=== PATIENT | male | born 1990 | race Caucasian/White ===

== ENCOUNTER 2017-08-04 12:52 | Emergency (ER) | payer OTHER ==
[~2017-08-04] VITALS: Ht 167.6 cm; Wt 65.8 kg
[~2017-08-04 12:52] MED LIST: Augmentin 500-1 EACH PO; Flonase 0.05% N16 GM; PSEU120ER PO
[2017-08-04] MEDS ORDERED: Amoxicillin875 MG PO (13:18)
[2017-08-04] MEDS ORDERED: Ultram50 MG PO (13:18)
== END 2017-08-04 13:25 | disposition home or self-care (01) ==
LOC: ER 12:52
DX: K11.20 Sialoadenitis, unspecified (principal); Z79.899 Other long term (current) drug therapy; Z87.442 Personal history of urinary calculi; F17.200 Nicotine dependence, unspecified, uncomplicated
CPT/HCPCS: 99283

== ENCOUNTER 2017-08-07 14:20 | Emergency (ER) | payer OTHER ==
[~2017-08-07] VITALS: Ht 167.6 cm; Wt 68.0 kg
[~2017-08-07 14:20] MED LIST changes: +Amoxicillin875 MG PO; +Ultram50 MG PO
[2017-08-07] MEDS ORDERED: Augmentin 875-1 EACH PO (15:35)
[2017-08-07] MEDS ORDERED: Percocet 5-3251 EACH PO (15:35)
[2017-08-08] MEDS ORDERED: Roxicodone5 MG PO (15:36)
[2017-08-08] MEDS ORDERED: Prednisone20 MG PO (15:36)
== END 2017-08-07 16:35 | disposition home or self-care (01) ==
LOC: ER 14:20
DX: K11.20 Sialoadenitis, unspecified (principal); F17.200 Nicotine dependence, unspecified, uncomplicated; Z87.442 Personal history of urinary calculi
CPT/HCPCS: 36415; 96361; 96374; 96375; 99284; J1170; J1885; J2405; J7030

== ENCOUNTER 2017-08-08 10:49 | Emergency (ER) | payer OTHER ==
[~2017-08-08] VITALS: Ht 167.6 cm; Wt 68.0 kg
[~2017-08-08 10:49] MED LIST changes: +Augmentin 875-1 EACH PO; +Percocet 5-3251 EACH PO
[2017-08-08 13:29] LABS: BASOPHILS ABSOLUTE AUTO 0.05 K/mm3 (0.00-0.23); BASOPHILS PERCENT AUTO 0 % (0-2); EOSINOPHILS ABSOLUTE AUTO 0.16 K/mm3 (0.00-0.68); EOSINOPHILS PERCENT AUTO 1 % (0-6); IMMATURE GRAN ABSOLUTE AUTO 0.04 K/mm3 (0.00-0.10); IMMATURE GRAN PERCENT AUTO 0 % (0-1); LYMPHOCYTES ABSOLUTE AUTO 1.76 K/mm3 (0.84-5.20); LYMPHOCYTES PERCENT AUTO 12 % (21-46); MONOCYTES ABSOLUTE AUTO 1.37 K/mm3 (0.16-1.47); MONOCYTES PERCENT AUTO 9 % (4-13); Mean Corpuscular HGB 32.5 pg (26.0-34.0); Mean Corpuscular HGB Conc 36.2 g/dL (31.5-36.5); Mean Corpuscular Volume 90 fL (80-100); Mean Platelet Volume 10.7 fL (9.1-12.4); NEUTROPHILS ABSOLUTE AUTO 11.84 K/mm3 (1.96-9.15); NEUTROPHILS PERCENT AUTO 78 % (41-73); Platelet Count 259 K/mm3 (150-400); RDW Coefficient Variation 11.5 % (11.7-14.2); RDW Standard Deviation 37.7 fL (35.1-46.3); Red Blood Cell Count 5.23 M/mm3 (4.30-5.90); White Blood Cell Count 15.22 K/mm3 (4.00-11.30)
[2017-08-08 13:36] LABS: Anion Gap 9 mmol/L (6-16); Blood Urea Nitrogen 10 mg/dL (8-24); Bun/Creatinine Ratio 11.6 (12.0-20.0); CO2, Blood 28 mmol/L (21-32); Chloride, Blood 100 mmol/L (98-108); Creatinine, Blood 0.86 mg/dL (0.60-1.20); Glomerular Filtration Rate >60 (60-); Glucose, Blood 83 mg/dL (70-99); Potassium, Blood 3.5 mmol/L (3.5-5.5); Sodium, Blood 137 mmol/L (136-145)
[2017-08-08] MEDS ORDERED: Roxicodone5 MG PO (15:36)
[2017-08-08] MEDS ORDERED: Prednisone20 MG PO (15:36)
== END 2017-08-08 16:13 | disposition home or self-care (01) ==
LOC: ER 10:49
PROVIDERS: Emergency Medicine
DX: K11.5 Sialolithiasis (principal); L03.211 Cellulitis of face; L03.221 Cellulitis of neck; F17.210 Nicotine dependence, cigarettes, uncomplicated; Z79.2 Long term (current) use of antibiotics
CPT/HCPCS: 36415; 70487; 80048; 85025; 96361; 96365; 96375; 99281; 99284; J0295; J0696; J1100; J1170; J1885; J7030; Q9967

== ENCOUNTER 2018-02-16 03:16 | Emergency (ER) | payer OTHER ==
[~2018-02-16 03:16] MED LIST changes: +Prednisone20 MG PO; +Roxicodone5 MG PO
== END 2018-02-16 03:33 | disposition left against medical advice (07) ==
LOC: ER 03:16
DX: Z53.21 Procedure and treatment not carried out due to patient leaving prior to being seen by health care provider (principal)

== ENCOUNTER 2018-05-21 20:52 | Emergency (ER) | payer OTHER ==
[~2018-05-21] VITALS: Ht 167.6 cm; Wt 68.0 kg
[2018-05-21 21:25] LABS: BASOPHILS ABSOLUTE AUTO 0.02 K/mm3 (0.00-0.23); BASOPHILS PERCENT AUTO 0 % (0-2); EOSINOPHILS ABSOLUTE AUTO 0.06 K/mm3 (0.00-0.68); EOSINOPHILS PERCENT AUTO 1 % (0-6); Hemoglobin 16.4 g/dL (13.5-17.5); IMMATURE GRAN ABSOLUTE AUTO 0.04 K/mm3 (0.00-0.10); IMMATURE GRAN PERCENT AUTO 1 % (0-1); LYMPHOCYTES ABSOLUTE AUTO 1.58 K/mm3 (0.84-5.20); LYMPHOCYTES PERCENT AUTO 23 % (21-46); MONOCYTES ABSOLUTE AUTO 0.27 K/mm3 (0.16-1.47); MONOCYTES PERCENT AUTO 4 % (4-13); Mean Corpuscular HGB 31.4 pg (26.0-34.0); Mean Corpuscular HGB Conc 34.2 g/dL (31.5-36.5); Mean Corpuscular Volume 92 fL (80-100); Mean Platelet Volume 10.3 fL (9.1-12.4); NEUTROPHILS ABSOLUTE AUTO 5.05 K/mm3 (1.96-9.15); NEUTROPHILS PERCENT AUTO 72 % (41-73); Platelet Count 281 K/mm3 (150-400); RDW Coefficient Variation 11.1 % (11.7-14.2); Red Blood Cell Count 5.23 M/mm3 (4.30-5.90); White Blood Cell Count 7.02 K/mm3 (4.00-11.30)
[2018-05-21 21:39] LABS: Alanine Aminotransfer (ALT/SGP 128 U/L (12-78); Albumin, Blood 4.6 g/dL (3.4-5.0); Albumin/Globulin Ratio 1.2 (0.8-1.8); Alk Phos 57 U/L (50-136); Anion Gap 9 mmol/L (6-16); Aspartate Aminotrans (AST/SGOT 51 U/L (12-37); Bilirubin, Total 0.3 mg/dL (0.1-1.0); Blood Urea Nitrogen 12 mg/dL (8-24); Bun/Creatinine Ratio 16.3 (12.0-20.0); CO2, Blood 26 mmol/L (21-32); Calcium, Blood 8.9 mg/dL (8.5-10.1); Chloride, Blood 106 mmol/L (98-108); Creatinine, Blood 0.74 mg/dL (0.60-1.20); Globulin, Blood 3.9 g/dL (2.2-4.0); Glomerular Filtration Rate >60 (60-); Glucose, Blood 95 mg/dL (70-99); Potassium, Blood 3.9 mmol/L (3.5-5.5); Sodium, Blood 141 mmol/L (136-145); Total Protein, Blood 8.5 g/dL (6.4-8.2)
[2018-05-21] MEDS ORDERED: Zofran Odt4 MG SL (23:07)
== END 2018-05-21 23:10 | disposition home or self-care (01) ==
LOC: ER 20:52
PROVIDERS: Emergency Medicine
DX: R11.2 Nausea with vomiting, unspecified (principal); Z79.52 Long term (current) use of systemic steroids; Z79.899 Other long term (current) drug therapy; F17.210 Nicotine dependence, cigarettes, uncomplicated
CPT/HCPCS: 36415; 80053; 83690; 85025; 96361; 96374; 96376; 99284-25; J0780; J2405; J7120

== ENCOUNTER → 2018-08-01 | Outpatient (CLI) | payer OTHER ==
[~2018-08-01] MED LIST changes: +Zofran Odt4 MG SL
[2018-08-07 06:18] LABS: COTININE None Detected (.); NICOTINE None Detected (.)
== END | disposition home or self-care (01) ==
LOC: LAB SHORT 15:22 → LAB 15:22
PROVIDERS: Otolaryngology
DX: F17.201 Nicotine dependence, unspecified, in remission (principal)
CPT/HCPCS: G0480

== ENCOUNTER 2018-08-26 07:10 | Day surgery (SDC) | payer OTHER ==
[~2018-08-26] VITALS: Ht 167.6 cm; Wt 67.1 kg
== END 2018-08-26 12:19 | disposition home or self-care (01) ==
LOC: ORSCSDS 07:10
PROVIDERS: Otolaryngology
PROC: 0CBH0ZX Excision of Left Submaxillary Gland, Open Approach, Diagnostic (ICD-10-PCS; principal; 2018-08-26 08:15)
DX: K11.20 Sialoadenitis, unspecified (principal); I10 Essential (primary) hypertension; E11.9 Type 2 diabetes mellitus without complications; Z87.891 Personal history of nicotine dependence; Z79.899 Other long term (current) drug therapy
CPT/HCPCS: 88307; J0171; J1100; J2250; J2405; J2710; J3010; J7120

== ENCOUNTER → 2020-12-30 | Outpatient (CLI) | payer OTHER ==
[2020-12-30 15:04] LABS: BASOPHILS ABSOLUTE AUTO 0.03 K/mm3 (0.00-0.23); BASOPHILS PERCENT AUTO 0 % (0-2); EOSINOPHILS ABSOLUTE AUTO 0.01 K/mm3 (0.00-0.68); EOSINOPHILS PERCENT AUTO 0 % (0-6); Hematocrit 49.5 % (37.0-53.0); Hemoglobin 17.9 g/dL (13.5-17.5); IMMATURE GRAN ABSOLUTE AUTO 0.02 K/mm3 (0.00-0.10); IMMATURE GRAN PERCENT AUTO 0 % (0-1); LYMPHOCYTES PERCENT AUTO 19 % (21-46); MONOCYTES ABSOLUTE AUTO 0.64 K/mm3 (0.16-1.47); MONOCYTES PERCENT AUTO 8 % (4-13); Mean Corpuscular HGB 32.5 pg (26.0-34.0); Mean Corpuscular HGB Conc 36.2 g/dL (31.5-36.5); Mean Corpuscular Volume 90 fL (80-100); Mean Platelet Volume 10.6 fL (9.1-12.4); NEUTROPHILS ABSOLUTE AUTO 5.93 K/mm3 (1.96-9.15); NEUTROPHILS PERCENT AUTO 73 % (41-73); Platelet Count 275 K/mm3 (150-400); RDW Coefficient Variation 11.5 % (11.7-14.2); RDW Standard Deviation 37.7 fL (35.1-46.3); White Blood Cell Count 8.13 K/mm3 (4.00-11.30)
[2020-12-30 15:07] LABS: Anion Gap 11 mmol/L (6-16); Blood Urea Nitrogen 12 mg/dL (8-24); Bun/Creatinine Ratio 12.8 (12.0-20.0); CO2, Blood 26 mmol/L (21-32); Calcium, Blood 9.2 mg/dL (8.5-10.1); Chloride, Blood 101 mmol/L (98-108); Creatinine, Blood 0.94 mg/dL (0.60-1.20); Glomerular Filtration Rate >60 (60-); Glucose, Blood 94 mg/dL (70-99); Potassium, Blood 3.9 mmol/L (3.5-5.5); Sodium, Blood 138 mmol/L (136-145)
== END | disposition home or self-care (01) ==
LOC: LAB SHORT 14:58 → LAB 14:58
PROVIDERS: Physician Assistant Surgical
DX: R10.31 Right lower quadrant pain (principal)
CPT/HCPCS: 80048; 85025

== ENCOUNTER → 2021-02-02 | Outpatient (CLI) | payer OTHER | END | disposition home or self-care (01) | LOC: LAB EV 09:36 → LAB SHORT 09:36 | DX: R10.31 Right lower quadrant pain (principal) | CPT/HCPCS: 87338 ==

== ENCOUNTER 2022-05-04 12:35 | Emergency (ER) | payer OTHER ==
[~2022-05-04] VITALS: Ht 167.6 cm; Wt 68.0 kg
[~2022-05-04 12:35] MED LIST changes: +IBUP400 PO
[2022-05-04] MEDS ORDERED: Voltaren100 GM TOP (13:57)
== END 2022-05-04 14:08 | disposition home or self-care (01) ==
LOC: ER 12:35
DX: M76.31 Iliotibial band syndrome, right leg (principal); M25.561 Pain in right knee; F17.210 Nicotine dependence, cigarettes, uncomplicated
CPT/HCPCS: 73562-RT; 99283-25; A9270

== ENCOUNTER 2025-01-02 06:11 | Observation (INO) | payer BC ==
[~2025-01-02] VITALS: Ht 167.6 cm; Wt 71.7 kg
[2025-01-02] VITALS (12 sets, daily range): BP systolic 110–145; BP diastolic 64–101
[~2025-01-02 06:11] MED LIST changes: +ACET500 PO; +FLOMAX0.4 MG PO; +IBUP600 PO; +ONDA4ODT MM; +PERCOCET 10-321 EA13 PO; +TAMS.4ER PO; +Voltaren100 GM TOP
[2025-01-02] MEDS ORDERED: NS 1,000 ML IV SCH ×3 (06:45→21:45)
[2025-01-02] MEDS ORDERED: Morphine Sulfate 4 MG/1 ML Injection IV ONE (06:45)
[2025-01-02] MEDS ORDERED: Ondansetron HCl 2 MG / ML 2ML Vial IV ONE (06:45)
[2025-01-02] MEDS ORDERED: Ketorolac Tromethamine 15mg Vial IV ONE (06:45)
[2025-01-02 06:52] LABS: Source, Urine Clean Catch
[2025-01-02 07:04] LABS: Bilirubin, Urine Neg (Neg); Blood, Urine 5+ (Neg); Glucose Qualitative, Urine Neg (Neg); Ketones, Urine Neg (Neg); Leukocyte Esterase, Urine Neg (Neg); Nitrite, Urine Neg (Neg); Protein, Urine 2+ (Neg); Specific Gravity, Urine 1.025 (1.003-1.022); Urobilinogen, Urine NORM (Normal)
[2025-01-02 07:05] LABS: Appearance, Urine Clear (Clear); Color, Urine No Color (P-Yellow)
[2025-01-02 07:09] LABS: White Blood Cells, Urine 0-2 /hpf (0-5)
[2025-01-02 07:10] LABS: Bacteria Rare /hpf; Red Blood Cells, Urine 50-100 /hpf (0-2); Squamous Epithelial Cells Not Seen /hpf (Few)
[2025-01-02 07:32] LABS: BASOPHILS ABSOLUTE AUTO 0.02 K/mm3 (0.00-0.23); BASOPHILS PERCENT AUTO 0 % (0-2); EOSINOPHILS ABSOLUTE AUTO 0.04 K/mm3 (0.00-0.68); EOSINOPHILS PERCENT AUTO 0 % (0-6); Hematocrit 38.7 % (37.0-53.0); Hemoglobin 13.5 g/dL (13.5-17.5); IMMATURE GRAN ABSOLUTE AUTO 0.03 K/mm3 (0.00-0.10); IMMATURE GRAN PERCENT AUTO 0 % (0-1); LYMPHOCYTES ABSOLUTE AUTO 0.93 K/mm3 (0.84-5.20); LYMPHOCYTES PERCENT AUTO 8 % (21-46); MONOCYTES ABSOLUTE AUTO 0.68 K/mm3 (0.16-1.47); MONOCYTES PERCENT AUTO 6 % (4-13); Mean Corpuscular HGB 31.7 pg (26.0-34.0); Mean Corpuscular HGB Conc 34.9 g/dL (31.5-36.5); Mean Corpuscular Volume 91 fL (80-100); Mean Platelet Volume 10.7 fL (9.1-12.4); NEUTROPHILS ABSOLUTE AUTO 9.39 K/mm3 (1.96-9.15); NEUTROPHILS PERCENT AUTO 85 % (41-73); Platelet Count 176 K/mm3 (150-400); RDW Coefficient Variation 11.9 % (11.7-14.2); RDW Standard Deviation 39.8 fL (35.1-46.3); Red Blood Cell Count 4.26 M/mm3 (4.30-5.90); White Blood Cell Count 11.09 K/mm3 (4.00-11.30)
[2025-01-02 07:48] LABS: Bun/Creatinine Ratio 12.7 (12.0-20.0); Calcium, Blood 8.7 mg/dL (8.5-10.1); Creatinine, Blood 1.42 mg/dL (0.60-1.20); Potassium, Blood 3.8 mmol/L (3.5-5.5)
[2025-01-02] MEDS ORDERED: HYDROmorphone HCl/Pf 1MG SYR IV PRN ×3 (09:10→21:46)
[2025-01-02] MEDS ORDERED: Ondansetron HCl 2 MG / ML 2ML Vial IV PRN (10:30)
[2025-01-02] MEDS ORDERED: Ketorolac Tromethamine 15mg Vial IV PRN (13:00)
[2025-01-02] MEDS ORDERED: CefTRIAXone Sodium 1,000 MG in NS 100 ML IV SCH (14:00)
--- NOTE | 2025-01-02 15:02 | NUR ---
HOSPITALIST INQUIRY NOTE: CALLED DR. ZAMORA AT 1450 INQUIRING PLAN OF CARE FOR PATIENT. PER. DR. ZAMORA HE SPOKE TO DR. MARTEL AND THE PLAN TO HAVE NEPHROSTOMY PLACEMENT SOMETIMES TODAY. THIS RN UPDATED MICAELA, CASHIER GREETER c PLAN OF CARE. MICAELA CALLED [facility]. PER [facility] THEY ARE AWARE OF PATIENT CASE, BUT COULD NOT PROVIDE ANY TIME FRAME.
--- NOTE | 2025-01-02 16:45 | NUR ---
CONSULTATION NOTE: DR. MARTEL (IR) CAME AT [phone] SPOKE TO PATIENT AND SPOUSE AT BEDSIDE c PLAN OF CARE.
[2025-01-02] MEDS ORDERED: NS 250 ML IV ONE (18:11)
[2025-01-02] MEDS ORDERED: Midazolam HCl 1MG / ML 2ML Vial ONE ×2 (18:16→18:37)
[2025-01-02] MEDS ORDERED: NS 1,000 ML IV ONE (18:16)
[2025-01-02] MEDS ORDERED: FentaNYL Citrate 50 MCG/ML 2 ML Injection ONE ×2 (18:16→18:41)
--- NOTE | 2025-01-02 18:29 | NUR ---
SHIFT SUMMARY: PATIENT ADMITTED FOR NEPHROLITHIASIS/FREDO, A/OX4, PLEASANT AND COOPERATIVE c CARE. PATIENT MEDICATED FOR L SIDE PAIN PER EMAR c GOOD EFFECT. PATIENT NPO FOR POSSIBLE NEPHROSTOMY TUBE PLACEMENT. PATIENT RECEIVED IV ABX AND NS PER ORDER. VITAL SIGNS REVIEWED. PATIENT LEFT THE ROOM AT 1810 TO DAY SURGERY.
--- NOTE | 2025-01-02 19:30 | NUR ---
PATIENT BROUGHT TO FLOOR BY IR STAFF, BEDSIDE REPORT RECEIVED. PT ALERT X4 C/O PAIN 10/10 LEFT FLANK. PRN GIVEN. LEFT FLANK NEPHROSTOMY TUBE DRAINING. SLIGHT DRAINAGE ON DRESSING. URINE BLOOD RED WITH CLOTS. APPLIED 2 L O2 VIA N/C FOR PAIN AND SEDATION. HYPO ACTIVE BOWEL SOUNDS . POST OP VITALS STARTED WILL CONTINUE TO MONITOR. 2029- GAVE PRN FOR PAIN 0 GAVE PRN FOR PAIN 2144- TT DR NEW ORDERS RECEIVED. FLUIDS STARTED . 2250-PRN GIVEN FOR PAIN 0330-PRN GIVEN FOR PAIN. TUBE DRAINING BRIGHT BLOOD RED .
[2025-01-02] MEDS ORDERED: Tamsulosin HCl 0.4 MG Cap PO SCH (21:00)
[2025-01-02] MEDS ORDERED: OxyCODONE HCL 5 MG TAB PO PRN (21:50)
[2025-01-03 03:21] VITALS: BP 99/51
[2025-01-03 03:23] LABS: Hematocrit 34.1 % (37.0-53.0); Hemoglobin 11.9 g/dL (13.5-17.5)
[2025-01-03 03:41] LABS: Bun/Creatinine Ratio 11.2 (12.0-20.0); Calcium, Blood 7.6 mg/dL (8.5-10.1); Creatinine, Blood 1.25 mg/dL (0.60-1.20)
[2025-01-03 07:48] VITALS: BP 116/68
[2025-01-03] MEDS ORDERED: NS 250 ML IV PRN (11:25)
[2025-01-03] MEDS ORDERED: HYDROmorphone HCl 2 MG Tab PO PRN (13:15)
[2025-01-03] MEDS ORDERED: Acetaminophen 325 MG TABLET PO PRN (16:05)
[2025-01-03 16:29] VITALS: BP 136/73
--- NOTE | 2025-01-03 16:29 | NUR ---
MD NOTIFICATION NOTE: PATIENT REQUESTING TYLENOL FOR BREAKTHROUGH PAIN, UPON ADMINISTERING TYLENOL REPORTS PAIN IS NOT GETTING UNDER CONTROLLED AND REQUESTING DIFFERENT PAIN MEDICATION. NOTIFIED DR. ZAMORA, RECEIVED ORDER TO DC'D PO DILAUDID, GIVE 5-10 MG PO OXYCODONE EVERY 4 HRS PRN AND 25-50 MG IV FENTANYL EVERY 4 HRS PRN FOR BREAKTHROUGH PAIN.
[2025-01-03] MEDS ORDERED: OxyCODONE HCL 5 MG TAB PO PRN (16:35)
[2025-01-03] MEDS ORDERED: FentaNYL Citrate 50 MCG/ML 2 ML Injection IV PRN (16:40)
--- NOTE | 2025-01-03 17:58 | NUR ---
SHIFT SUMMARY: PATIENT DAY#1 POST-OP NEPHROSTOMY TUBE DRAINED PLACED TO L SIDE, PATENT DRAINING RED COLOR URINE c NO CLOTS NOTED THIS SHIFT. PATIENT CONTINUES TO REPORTS PAIN 7-10/10 PAIN AND DOWN TO 3/10 c PAIN REASSESSMENT. PATIENT AMBULATED IN HALLWAY X1, REPORTS PAIN IS CLIMBING UP c AMBULATION. PATIENT EDUCATED ON NUMEROUS TIMES RISK/BENIFITS OF RECEIVING NARCOTICS AND KIDNEY STONE. PATIENT VERBALIZED UNDERSTANDING, BUT CONTINUES TO REPORTS THAT HE'S PAIN IT'S NOT MANAGE AND FEAR OF GOING HOME, STATED "I DON'T HAVE A DOCTOR, MY IS TRYING TO GET ME IN TO [facility], BUT THE APPOINTMENT NOT UNTIL FEBRUARY. YOU GUYS ARE GOING TO SEND ME HOME c LIMITED PAIN MEDICATION WHAT AM I GOING TO DO. I DON'T WANNA BE IN PAIN AT HOME." DR. ZAMORA IS AWARE OF THIS CONCERNED AND MADE CHANGES c PATIENT PAIN MEDS T/O SHIFT. PATIENT TOLERATING DIET WELL, CONTINENT OF BLADDER AND USES URINAL INDEPENDENTLY. ALL URINE OUT WAS STRAINED c NO STONE NOTED. PATIENT SPOUSE AT BEDSIDE T/O SHIFT AND PLAN TO STAYED OVERNIGHT. CALL LIGHT IN REACH.
[2025-01-03 20:07] VITALS: BP 111/63
--- NOTE | 2025-01-04 04:05 | NUR ---
SHIFT SUMMARY PATIENT CONTINUES TO HAVE LEFT FLANK PAIN.IV TORADOL 15 MG AND OXYCODONE 10 MG ALTERNATED. ALERT ORIENTED AND INDEPENDENT IN ROOM AND WALKED MC X ONE WITH SPOUSE. DENIES CHEST PAIN, SOB, AND N/V. VSS/AFEBRILE. SPOUSE PRESENT WITH FAMILY AT SHIFT CHANGES AND SPOUSE LATER CAME BACK AND STAYED. LEFT NEPHROSTOMY TUBE INTACT AND HAVING OUTPUT. PIV INTACT.SLEPT WHEN PAIN MANAGED. CALL LIGHT IN REACH. BED IN LOWEST POSITION. WILL CONTINUE TO MONITOR UNTIL DAY SHIFT NURSE ASSUMES CARE.
[2025-01-04 05:06] VITALS: BP 109/63
[2025-01-04 06:18] LABS: Bun/Creatinine Ratio 10.6 (12.0-20.0); Calcium, Blood 8.3 mg/dL (8.5-10.1); Creatinine, Blood 1.32 mg/dL (0.60-1.20); Potassium, Blood 4.4 mmol/L (3.5-5.5)
[2025-01-04 08:41] VITALS: BP 123/67
--- NOTE | 2025-01-04 15:02 | NUR ---
HARD SCRIPT FOR OXY GIVEN TO , COPY IN CHART. PATIENT NEEDS CT PRIOR TO DISCHARGE.
[2025-01-04 15:38] VITALS: BP 102/56
--- NOTE | 2025-01-04 18:08 | NUR ---
DR ZAMORA PLACED DISCHARGE ORDERS, REQUESTING TO SPEAK TO DR ZAMORA. VOICING CONCERNS THAT DR ZAMORA HASN'T SPOKEN TO HER DIRECTLY REGARDING PATIENT'S CARE. PATIENT A/O X4, ABLE TO MAKE NEEDS KNOWN. DR ZAMORA IN ROOM SPEAKING WITH PER REQUESTED.
[2025-01-04] MEDS ORDERED: OXAYDO5 M1 PO (18:14)
--- NOTE | 2025-01-04 19:27 | NUR ---
DISCHARGE SUMMARY PATIENT DISCHARGED THIS SHIFT WITH TO DRIVE. A/O X4. IV REMOVED WITHOUT COMPLICATION. L NEPH TUBE INTACT, DRAINING RED. REPORTS OF CONTINUED PAIN, SENT WITH OXY SCRIPT WHICH ALREADY FILLED. DISCHARGE PACKET GIVEN AND REVIEWED, QUESTIONS ANSWERED, AND PT VERBALIZED UNDERSTANDING.
== END 2025-01-04 19:19 | disposition home or self-care (01) ==
LOC: ER 06:11 → MEDS 06:12
PROVIDERS: Student in an Organized Health Care Education/Training Program; ADMIT Internal Medicine
DX: N13.2 Hydronephrosis with renal and ureteral calculous obstruction (principal); N17.9 Acute kidney failure, unspecified; F17.210 Nicotine dependence, cigarettes, uncomplicated; Z79.899 Other long term (current) drug therapy
CPT/HCPCS: 36415; 50432; 74176; 76937; 80048; 81001; 85014; 85018; 85025; 96361; 96374; 96375; 96376; 99152; 99153; 99284-25; A9270; C1769; C1894; G0378; J0696; J1171; J1885; J2250; J2270; J2405; J3010; J7030; J7050; Q9967

== ENCOUNTER 2025-01-11 00:02 | Emergency (ER) | payer BC ==
[~2025-01-11] VITALS: Ht 167.6 cm; Wt 68.0 kg
[~2025-01-11 00:02] MED LIST changes: +OXAYDO5 M1 PO
[2025-01-11 00:37] LABS: BASOPHILS ABSOLUTE AUTO 0.02 K/mm3 (0.00-0.23); BASOPHILS PERCENT AUTO 0 % (0-2); EOSINOPHILS ABSOLUTE AUTO 0.03 K/mm3 (0.00-0.68); EOSINOPHILS PERCENT AUTO 0 % (0-6); Hematocrit 38.4 % (37.0-53.0); Hemoglobin 13.2 g/dL (13.5-17.5); IMMATURE GRAN ABSOLUTE AUTO 0.01 K/mm3 (0.00-0.10); IMMATURE GRAN PERCENT AUTO 0 % (0-1); LYMPHOCYTES ABSOLUTE AUTO 0.85 K/mm3 (0.84-5.20); LYMPHOCYTES PERCENT AUTO 12 % (21-46); MONOCYTES ABSOLUTE AUTO 0.55 K/mm3 (0.16-1.47); MONOCYTES PERCENT AUTO 8 % (4-13); Mean Corpuscular HGB 31.4 pg (26.0-34.0); Mean Corpuscular HGB Conc 34.4 g/dL (31.5-36.5); Mean Corpuscular Volume 91 fL (80-100); NEUTROPHILS ABSOLUTE AUTO 5.55 K/mm3 (1.96-9.15); NEUTROPHILS PERCENT AUTO 79 % (41-73); Platelet Count 266 K/mm3 (150-400); RDW Coefficient Variation 11.8 % (11.7-14.2); RDW Standard Deviation 39.4 fL (35.1-46.3); White Blood Cell Count 7.01 K/mm3 (4.00-11.30)
[2025-01-11 00:57] LABS: Albumin/Globulin Ratio 1.1 (0.8-1.8); Bilirubin, Total 0.5 mg/dL (0.1-1.0); Bun/Creatinine Ratio 15.9 (12.0-20.0); Calcium, Blood 8.7 mg/dL (8.5-10.1); Creatinine, Blood 1.38 mg/dL (0.60-1.20); Globulin, Blood 3.5 g/dL (2.2-4.0); Potassium, Blood 3.8 mmol/L (3.5-5.5); Total Protein, Blood 7.5 g/dL (6.4-8.2)
[2025-01-11] MEDS ORDERED: FentaNYL Citrate 50 MCG/ML 2 ML Injection IV PRN (01:55)
[2025-01-11] MEDS ORDERED: TraMADol HCl 50 MG Tab PO ONE (01:55)
[2025-01-11] MEDS ORDERED: Ondansetron HCl 2 MG / ML 2ML Vial IV ONE (02:10)
[2025-01-11] MEDS ORDERED: NS 1,000 ML IV SCH (02:45)
[2025-01-11] MEDS ORDERED: HYDROmorphone HCl/Pf 1MG SYR IV PRN (03:15)
[2025-01-11] MEDS ORDERED: CefTRIAXone Sodium 1,000 MG in NS 50 ML IV ONE (03:20)
[2025-01-11] MEDS ORDERED: PROM12.5S PR (04:56)
[2025-01-11] MEDS ORDERED: HYDROmorphone HCl/Pf 1MG SYR IV ONE (05:00)
[2025-01-11 05:20] VITALS: BP 128/71
== END 2025-01-11 05:20 | disposition home or self-care (01) ==
LOC: ER 00:02
PROVIDERS: Emergency Medicine
DX: E86.0 Dehydration (principal); R11.2 Nausea with vomiting, unspecified; G89.18 Other acute postprocedural pain; Z93.6 Other artificial openings of urinary tract status; Z79.899 Other long term (current) drug therapy; F17.210 Nicotine dependence, cigarettes, uncomplicated
CPT/HCPCS: 74177; 80053; 83605; 85025; 87040; 96361; 96365-59; 96375; 96376; 99284-25; A9270; J0696; J1171; J2405; J7030; Q9967

== ENCOUNTER 2025-07-15 01:54 | Emergency (ER) | payer BC ==
[~2025-07-15] VITALS: Ht 167.6 cm; Wt 68.0 kg
[~2025-07-15 01:54] MED LIST changes: +PROM12.5S PR
[2025-07-15] MEDS ORDERED: Amoxicillin875 MG PO (04:26)
[2025-07-15 04:44] VITALS: BP 122/90
== END 2025-07-15 04:45 | disposition home or self-care (01) ==
LOC: ER 01:54
DX: H66.92 Otitis media, unspecified, left ear (principal); F17.210 Nicotine dependence, cigarettes, uncomplicated
CPT/HCPCS: 99282; A9270